=== PATIENT | male | born 1955 | race Caucasian/White ===

== ENCOUNTER 2019-04-11 11:22 | Emergency (ER) | payer BC, SELFPAY ==
[2019-04-11 11:30] VITALS: BP 149/79; PULSE 60; RESP 18; TEMP 36.6; O2SAT 99; BMI 26.4
--- NOTE | 2019-04-11 11:46 | ED_ITS ---
Entered by Oralia Griffin, acting as scribe for Agustina Barnhart MD, [facility] [place] HPI - SOB/Dyspnea General: Chief Complaint: Shortness of Breath/Dyspnea Stated Complaint: SOB/weak Time Seen by Provider: 04/11/19 11:44 Source: patient and family Mode of arrival: ambulatory Limitations: no limitations History of Present Illness: HPI Narrative: 63 yo Male presents to ED with complaint of shortness of breath. Pt states that he was diagnosed with bronchitis yesterday and was put on Levaquin. Pt states that he got to feeling weird and worse and decided to come in. Pt states that he thinks it started with the flu last week. Pt states that he was feeling weak and tingly in his arms and legs. MD elicited complaint: shortness of breath Onset (ago): day(s) Context: recent illness Timing: progressively worsening Exacerbating factors: lying flat Relieving factors: upright position Associated symptoms: Reports chest congestion, cough and other (weakness and tingling to extremities); Deny abdominal pain, chest pain, fever(s), nausea, palpitations, polydipsia, polyuria or vomiting Treatment prior to arrival: none Review of Systems General: Reports: 10 or more systems reviewed and unremarkable except in HPI and below Const: Reports: chills and body aches; Denies: fever Eyes: Denies: change in vision or blurry vision ENMT: Denies: throat pain, enlarged tonsils, painful swallowing, hoarseness, mouth pain or swelling of lips/tongue Card: Denies: chest pain, palpitations, irregular heart rhythm, edema or swelling of feet/ankles Resp: Reports: shortness of breath, non-productive cough and chest congestion GI: Denies: abdominal pain, nausea or vomiting : Denies: flank pain, painful urination, urinary frequency, urinary urgency or urinary hesitancy Musc: Reports: muscle weakness (tingling sensation); Denies: neck pain, back pain or extremity swelling Skin/Breast: Denies: rash, itching or redness Neuro: Denies: headache, numbness in extremities or weakness in extremities Endo: Denies: excessive urination, excessive thirst or tired all the time [facility] ED PFSH: Social History Smoking and tobacco status: never smoked Physical Exam Const: COMMON NORMALS: no apparent distress, average body habitus, oriented x3, no limitations, healthy appearing, alert and well nourished HENMT: COMMON NORMALS: normocephalic, head/scalp atraumatic and moist oral mucous membranes HEAD & SCALP: normocephalic and atraumatic Eye: COMMON NORMALS: PERRL, EOMs intact bilaterally, conjunctivae normal and no scleral icterus CONJUNCTIVA: Yes conjunctivae normal PUPIL: Yes PERRL Neck/C-Spine: COMMON NORMALS: full ROM, supple, no meningeal signs, no JVD and no carotid bruits Chest: COMMONS NORMALS: inspection of chest normal and palpation of chest normal Resp: COMMON NORMALS: normal respiratory effort, no retractions, no use of accessory muscles and percussion normal; negative for clear to auscultation bilaterally AUSCULTATION: not clear to auscultation bilaterally and diminished lung sounds on the left in the lower lung mendoza PERCUSSION: percussion normal Cardio: COMMON NORMALS: no JVD, regular rate, regular rhythm, S1 normal heart sound, S2 normal heart sound, no gallops, no clicks, no murmurs, no rub and peripheral pulses 2+ throughout RATE: regular rate RHYTHM: regular rhythm HEART SOUNDS: S1 normal and S2 normal PERIPHERAL PULSES: pulses 2+ throughout GI: COMMON NORMALS: normal to inspection, nondistended, normoactive bowel sounds, soft to palpation, non-tender, no hepatosplenomegaly, no masses and no bruits PALPATION: Yes soft and Yes no hepatosplenomegaly : COMMON NORMALS: Yes no CVA tenderness BLADDER/KIDNEY EXAM: Yes no CVA tenderness Back/Pelvis: COMMON NORMALS: no CVA tenderness Extremity: COMMON NORMALS: normal to inspection, full ROM, normal capillary refill, no calf tenderness and no pedal edema Neuro: COMMON NORMALS: oriented x3 SENSORIUM/ORIENTATION: Yes alert MENINGEAL SIGNS: Yes no meningeal signs Skin: COMMON NORMALS: no rashes or lesions noted, no wounds, skin turgor normal, no jaundice, no petechiae and no mottling GENERAL SKIN EXAM: no rashes or lesions noted and turgor normal Course Reevaluation(s): Reevaluation #1: Discussed his lab and imaging findings with him. Labs unremarkable, including a flat 2-hour troponin delta. Chest x-ray negative for acute findings. White cell count normal. Influenza negative. I will discharge him home with no new orders. Advised that this is possibly a side effect of his medication, levofloxacin. Since he does not appear to have any infectious illness I think it is okay to discontinue the medication. However he is advised to return for any concerns. He voiced understanding and is in agreement with the plan. Time: 14:49 Vital Signs: Vital signs: Vital Signs Temperature 97.8 F 04/11/19 11:30 Pulse Rate 69 04/11/19 15:02 Respiratory Rate 18 04/11/19 15:02 Blood Pressure 168/93 04/11/19 15:02 Pulse Oximetry 96 04/11/19 15:02 MDM - SOB/Dyspnea MDM Narrative: Medical decision making narrative: 63-year-old male who presented to the emergency department with generalized weakness and shortness of breath. He was started on Levaquin yesterday for suppose it bronchitis. Evaluation in the emergency department is unremarkable and he is discharged home with no new orders. Medical Records: Attestation: I reviewed the patient's medical records. Lab Data: Attestation: I reviewed the patient's lab results. Labs: Lab Results 04/11/19 04/11/19 04/11/19 Range/Units 12:24 12:24 12:24 WBC 4.6 (4.0-10.0) 10^3/ uL RBC 4.53 (4.1-5.3) 10^6/u L Hgb 11.7 (11.7-16.6) g/dL Hct 37.8 L (42.0-52.0) % MCV 83.4 (80-94) fL MCH 25.8 L (28.0-34.0) pg MCHC 31.0 (30.0-36.0) g/dL RDW 16.3 H (12.1-15.1) % Plt Count 520 H (130-400) 10^3/c mm MPV 11.6 H (7.4-10.4) fL Neut % (Auto) 80.4 % Lymph % (Auto) 11.0 % [place] % (Auto) 6.5 % Eos % (Auto) 1.7 % Baso % (Auto) 0.0 % Neut # (Auto) 3.7 (1.8-7.7) 10^3/u L Lymph # (Auto) 0.5 L (0.8-4.8) 10^3/u L [place] # (Auto) 0.3 (0.2-0.9) 10^3/u L Eos # (Auto) 0.1 (0.0-0.8) 10^3/u L Baso # (Auto) 0.0 (0.0-0.1) 10^3/u L Nucleated RBC % (a uto) 0 % Nucleated RBCs # 0.0 /100WBC Sodium 136 (136-145) mmol/L Potassium 4.1 (3.5-5.1) mmol/L Chloride 101 (98-107) mmol/L Carbon Dioxide 24 (22-29) mmol/L Anion Gap 15.1 (5-19) BUN 16 (8-23) mg/dL Creatinine 0.7 (0.7-1.2) mg/dL GFR Calculation 114.6 (90-130) mL/min Glucose 130 H (65-115) mg/dL Calcium 8.9 (8.5-10.5) mg/dL Total Bilirubin 0.3 (0.15-1.2) mg/dL AST 46 H (0-40) U/L ALT 34 (0-41) U/L Alkaline Phosphata se 92 (40-130) IU/L Troponin T Baselin e 17 H (0-15) ng/mL Troponin T 120 Min jay (0-15) ng/mL Delta Troponin T (0-10) ABS# C-Reactive Protein 32.5 H (0.0-4.9) mg/L NT-Pro-B Natriuret Pep 60 (0-125) pg/mL Total Protein 7.1 (6.6-8.7) g/dL Albumin 4.1 (3.5-5.2) g/dL Globulin 3.0 (1.3-4.6) g/dL Influenza Type A A g (Negative) POC Influenza B Ag (Negative) 04/11/19 04/11/19 Range/Units 12:32 14:05 WBC (4.0-10.0) 10^3/ uL RBC (4.1-5.3) 10^6/u L Hgb (11.7-16.6) g/dL Hct (42.0-52.0) % MCV (80-94) fL MCH (28.0-34.0) pg MCHC (30.0-36.0) g/dL RDW (12.1-15.1) % Plt Count (130-400) 10^3/c mm MPV (7.4-10.4) fL Neut % (Auto) % Lymph % (Auto) % [place] % (Auto) % Eos % (Auto) % Baso % (Auto) % Neut # (Auto) (1.8-7.7) 10^3/u L Lymph # (Auto) (0.8-4.8) 10^3/u L [place] # (Auto) (0.2-0.9) 10^3/u L Eos # (Auto) (0.0-0.8) 10^3/u L Baso # (Auto) (0.0-0.1) 10^3/u L Nucleated RBC % (a uto) % Nucleated RBCs # /100WBC Sodium (136-145) mmol/L Potassium (3.5-5.1) mmol/L Chloride (98-107) mmol/L Carbon Dioxide (22-29) mmol/L Anion Gap (5-19) BUN (8-23) mg/dL Creatinine (0.7-1.2) mg/dL GFR Calculation (90-130) mL/min Glucose (65-115) mg/dL Calcium (8.5-10.5) mg/dL Total Bilirubin (0.15-1.2) mg/dL AST (0-40) U/L ALT (0-41) U/L Alkaline Phosphata se (40-130) IU/L Troponin T Baselin e (0-15) ng/mL Troponin T 120 Min jay 15.91 H (0-15) ng/mL Delta Troponin T -1.09 L (0-10) ABS# C-Reactive Protein (0.0-4.9) mg/L NT-Pro-B Natriuret Pep (0-125) pg/mL Total Protein (6.6-8.7) g/dL Albumin (3.5-5.2) g/dL Globulin (1.3-4.6) g/dL Influenza Type A A g Negative (Negative) POC Influenza B Ag Negative (Negative) Imaging Data^: CXR: Radiologist's impression: [address] [address] XRay Report Signed Patient: Ric Alejo #: [id number] : 8Acct#:[id number] Age/Sex: 63 / MADM Date: 04/11/19 Loc: ERRoom/Bed: Attending Dr: Ordering Provider/Ordering MD: Agustina Barnhart MD, [facility] [place] Date of Service: 04/11/19 Procedure(s): XR chest 2V* 40871 Accession Number(s): [id number] Report Number: [id number] WS: [id number] Chest 2 views, 04/11/2019 Clinical Data: shortness of breath Comparison: PA and lateral chest, 12/29/2017. Findings: No nodules, masses or effusions are seen. The heart is normal. The pulmonary vascularity is not increased. No pneumonia or pneumothorax is seen. There is a small orthopedic anchor in the left humeral head. XR/XR chest 2V* [id number] Impression: Negative chest. Dictated By:Jennifer Roman MD Signed By:Jennifer Roman MDSigned Date/Time:04/11/191207 DD/ 1206 EKG Data^: EKG 1: Attestation: I personally reviewed and interpreted this EKG as follows: EKG Interpretation Date: 04/11/19 EKG interpretation time: 12:01 Prior EKG tracings: not available for review Interpretation: Sinus bradycardia. Heart rate 59 bpm. Normal axis, no ST changes. EKG 2: Attestation: I personally reviewed and interpreted this EKG as follows: EKG Interpretation Date: 04/11/19 EKG interpretation time: 13:38 Prior EKG tracings: available for review Interpretation: no changes from earlier EKG Discharge Plan Discharge Patient Disposition: Home, Self-Care Clinical Impression: Generalized weakness, Shortness of breath Condition: Stable Prescriptions: Discontinued levofloxacin [Levaquin] 750 mg Tablet 750 mg PO DAILY RF: 0 No Action Mucinex 600 mg Tablet Extended Release 12hr 600 mg PO BID RF: 0 Discharge Orders: Discharge Order (Routine); Ordered 04/11/19 Ordered By: Agustina Barnhart Referrals: Ovi Prescott MD [Family Provider] - 1-3 days Patient Instructions: Dyspnea (ED), Weakness (Generalized) Activity Restrictions/Additional Instructions: Return for any new or worsening symptoms. Follow-up with your primary care provider within 3 days. Drink plenty of fluids to keep well-hydrated. Discharge Date/Time: 04/11/19 15:06 Coding Level of Care Code ED Trade Union Secretary for Chg Fwd Exam Comprehensive The documentation recorded by the Elias oconnor Carmen, accurately reflects the service I personally performed and the decisions made by Obey vivar Adegoke I, MD, [facility] [place] Apr 11, 2019 11:22
--- NOTE | 2019-04-11 11:48 | PC.NURSE ---
Patient reports he was seen at his PCP yesterday for a cough and congestion and they diagnosed him with bronchitis and possible pneumonia. Patient states that this morning he woke up feeling much worse. Patient reports his PCP told him to be checked out if the symptoms got worse.
--- NOTE | 2019-04-11 11:52 | ECG_ITS ---
Measurements Intervals [place] Rate: 59 P: 2 ND: 139 QRS: -11 QRSD: 101 T: 61 QT: 417 QTc: 415 SINUS BRADYCARDIA NONSPECIFIC T-WAVE ABNORMALITY Compared to ECG 12/29/2017 11:04:41 T-wave abnormality now present Electronically Signed On 04-11-2019 19:45:14 EXERCISE TEACHER by Ranjith Herman M.D. [email or web address]
--- NOTE | 2019-04-11 11:52 | XR_ITS ---
WS: [id number] Chest 2 views, 04/11/2019 Clinical Data: shortness of breath Comparison: PA and lateral chest, 12/29/2017. Findings: No nodules, masses or effusions are seen. The heart is normal. The pulmonary vascularity is not increased. No pneumonia or pneumothorax is seen. There is a small orthopedic anchor in the left humeral head. XR/XR chest 2V* [id number] Impression: Negative chest.
[2019-04-11 12:51] LABS: Eosinophils # 0.1 10^3/uL (0.0-0.8); Eosinophils % 1.7 %; Hematocrit 37.8 % (42.0-52.0); Hemoglobin 11.7 g/dL (11.7-16.6); Lymphocytes # 0.5 10^3/uL (0.8-4.8); Mean Corpuscular Hemoglobin 25.8 pg (28.0-34.0); Mean Corpuscular Volume 83.4 fL (80-94); Mean Platelet Volume 11.6 fL (7.4-10.4); Monocytes # 0.3 10^3/uL (0.2-0.9); Monocytes % 6.5 %; Neutrophils # 3.7 10^3/uL (1.8-7.7); Neutrophils % 80.4 %; Nucleated Red Blood Cells % 0 %; Platelet Count 520 10^3/cmm (130-400); Red Blood Count 4.53 10^6/uL (4.1-5.3); Red Cell Distribution Width 16.3 % (12.1-15.1); White Blood Count 4.6 10^3/uL (4.0-10.0)
[2019-04-11 13:10] LABS: Troponin(5th) Baseline 17 ng/mL (0-15)
[2019-04-11] MEDS: ondansetron 4 MG Tablet PO (13:18)
[2019-04-11 13:19] LABS: Alanine Aminotransferase 34 U/L (0-41); Albumin Level 4.1 g/dL (3.5-5.2); Alkaline Phosphatase 92 IU/L (40-130); Anion Gap 15.1 (5-19); Aspartate Amino Transferase 46 U/L (0-40); Blood Urea Nitrogen 16 mg/dL (8-23); C Reactive Protein 32.5 mg/L (0.0-4.9); Calcium 8.9 mg/dL (8.5-10.5); Carbon Dioxide 24 mmol/L (22-29); Chloride 101 mmol/L (98-107); Glomerular Filtration Rate 114.6 mL/min (90-130); Glucose 130 mg/dL (65-115); NT Pro B Type Natriuretic Pept 60 pg/mL (0-125); Potassium 4.1 mmol/L (3.5-5.1); Sodium 136 mmol/L (136-145); Total Bilirubin 0.3 mg/dL (0.15-1.2); Total Protein 7.1 g/dL (6.6-8.7)
--- NOTE | 2019-04-11 13:52 | ECG_ITS ---
Measurements Intervals [place] Rate: 57 P: 30 MI: 171 QRS: -20 QRSD: 105 T: 9 QT: 437 QTc: 427 SINUS BRADYCARDIA POSSIBLE LATERAL MYOCARDIAL INFARCTION , PROBABLY OLD [30 ms Q WAVE IN I/ I/aVL/V5/V6] Compared to ECG 12/29/2017 11:04:41 Myocardial infarct finding now present Electronically Signed On 04-11-2019 20:00:22 RETIREMENT ADMINISTRATOR by Ranjith Herman M.D. [email or web address]
[2019-04-11 14:04] VITALS: BP 131/89; PULSE 67; RESP 15; O2SAT 94
[2019-04-11 14:32] LABS: Troponin 5 2HR 15.91 ng/mL (0-15)
[2019-04-11 14:37] LABS: Troponin 5 2HR Delta -1.09 ABS# (0-10)
--- NOTE | 2019-04-11 14:37 | PC.NURSE ---
PATIENT C/O PAIN, ORDERS RECEIVED
[2019-04-11 14:39] LABS: Influenza A by IFA Negative (Negative); Influenza B by IFA Negative (Negative)
[2019-04-11 15:02] VITALS: BP 168/93; PULSE 69; RESP 18; O2SAT 96
== END 2019-04-11 15:06 | disposition home or self-care (01) ==
PROVIDERS: Emergency Provider Family Medicine; Family Provider Family Medicine
DX: R53.1 Weakness (principal); R06.02 Shortness of breath; R06.00 Dyspnea, unspecified; R00.1 Bradycardia, unspecified
CPT/HCPCS: 36415; 71046; 80053; 83880; 84484; 85025; 86140; 87804; 93005; 96374; 99283; 99284; Q0162

== ENCOUNTER → 2019-08-24 09:56 | Outpatient (BNVA) | payer BC, SELFPAY | PROVIDERS: Family Provider Family Medicine; Visit Provider Dermatology | DX: D18.01 Hemangioma of skin and subcutaneous tissue (principal); L82.1 Other seborrheic keratosis; L73.8 Other specified follicular disorders; Z12.83 Encounter for screening for malignant neoplasm of skin; Z85.828 Personal history of other malignant neoplasm of skin; L57.0 Actinic keratosis | CPT/HCPCS: 11102; 11305; 17000; 17003; 88305; 99203 ==

== ENCOUNTER → 2019-09-12 14:00 | Outpatient (BNVA) | payer BC, SELFPAY | PROVIDERS: Family Provider Family Medicine; Visit Provider Nurse Practitioner Family | DX: R53.83 Other fatigue (principal); R50.9 Fever, unspecified; J02.9 Acute pharyngitis, unspecified | CPT/HCPCS: 87635 ==

== ENCOUNTER → 2019-09-14 13:45 | Outpatient (BNVA) | payer BC, SELFPAY | PROVIDERS: Family Provider Family Medicine; Visit Provider Nurse Practitioner Family | DX: J02.9 Acute pharyngitis, unspecified (principal); R50.9 Fever, unspecified; R53.83 Other fatigue | CPT/HCPCS: 87635 ==

== ENCOUNTER → 2019-09-26 13:20 | Outpatient (BNVA) | payer BC, SELFPAY | PROVIDERS: Family Provider Family Medicine; Visit Provider Dermatology | DX: L82.0 Inflamed seborrheic keratosis (principal); C44.92 Squamous cell carcinoma of skin, unspecified | CPT/HCPCS: 11603; 12032; 17000; 88304; 88305 ==

== ENCOUNTER → 2019-10-10 12:56 | Outpatient (BNVA) | payer BC, SELFPAY | PROVIDERS: Family Provider Family Medicine; Visit Provider Dermatology | DX: Z48.02 Encounter for removal of sutures (principal) | CPT/HCPCS: 99212 ==

== ENCOUNTER → 2019-12-26 13:38 | Outpatient (BNVA) | payer BC, SELFPAY | PROVIDERS: Family Provider Family Medicine; Visit Provider Dermatology | DX: D48.9 Neoplasm of uncertain behavior, unspecified (principal) | CPT/HCPCS: 88304 ==

== ENCOUNTER → 2021-02-21 08:36 | Outpatient (BNVA) | payer BC, SELFPAY | PROVIDERS: Family Provider Family Medicine; Visit Provider Surgery | DX: Z20.822 Contact with and (suspected) exposure to COVID-19 (principal); Z11.52 Encounter for screening for COVID-19 | CPT/HCPCS: 87635 ==

== ENCOUNTER 2021-02-26 09:43 | Day surgery (SDC) | payer BC, SELFPAY ==
[2021-02-25 13:32] VITALS: BMI 26.4
[2021-02-26] VITALS (10 sets, daily range): BP systolic 112–144; BP diastolic 64–98; PULSE 59–83; RESP 6–20; TEMP 36.3–37.1; O2SAT 92–97
--- NOTE | 2021-02-26 10:12 | P.ANESASSM_ITS ---
Pre-Anesthetic Assessment Pre-Anesthetic Assessment: Height/Weight: Height 1.85 m Weight 90.718 kg Preop Diagnosis: Left inguinal hernia Proposed Procedure: Operation Date: 02/26/21 11:10 Proposed Procedures p Laparoscopic Inguinal Hernia Repair 53309 K40.90(Left) - Kevin Pandya MD Familial anesthetic complications: None Was Beta Varinder taken within 24 hours: N/A Was Clonidine taken within 24 hours: N/A Last intake: > 8 hrs Social: Social History: No alcohol and No tobacco Exam: Pre-Anes Outpt Exam: alert, oriented x 3, clear to auscultation bilaterally and regular rate & rhythm Airway: Cervical ROM: WNL MP: 2 Dentition: Full Neuropsych: Comments: 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) Anesthetic Plan: ASA status: 2 Anesthesia: General Risk of > 500 ml blood loss (7ml/kg in children): No PFSH Anesthesia PFSH: Medical History (Updated 02/18/21 @ 14:05 by Kevin Pandya MD) Charcot Eugenia Tooth muscular atrophy History of nonmelanoma skin cancer Surgical History (Updated 02/18/21 @ 14:05 by Kevin Pandya MD) History of colonoscopy 2019 History of foot surgery History of shoulder surgery 2015 History of total knee replacement left 2017 Family History Other CAD (coronary artery disease) Denies family history of Diabetes Cancer Hypertension Stroke Social History Smoking and tobacco status: never smoked Alcohol intake: current Alcohol intake frequency: 0-2 Drinks per Day History of recent travel: Yes ([facility]) Data Anesthesia Cardiac Studies: No Data to Display
--- NOTE | 2021-02-26 10:29 | W.PM.OPSFHP ---
Same Day Surgery H&P Indication for Procedure/HPI DATE OF PROCEDURE: February 26, 2021 CHIEF COMPLAINT/INDICATIONFOR SURGICAL PROCEDURE: left inguinal hernia PREOP DIAGNOSIS: Left inguinal hernia PLANNED PROCEDRUE: Operation Date: 02/26/21 11:10 Proposed Procedures p Laparoscopic Inguinal Hernia Repair 11716 K40.90(Left) - Kevin Pandya MD Medications/Allergies* Home Medications Medication Instructions Recorded Confirmed Type aspirin 81 mg tablet,delayed 81 mg PO DAILY 08/24/19 02/25/21 History release loratadine 10 mg tablet 10 mg PO DAILY 08/24/19 02/26/21 History multivitamin 1 cap PO DAILY 08/24/19 02/26/21 History fluticasone propionate 50 1 spray INTRANASAL DAILY 06/04/20 02/26/21 History mcg/actuation nasal spray,suspension tamsulosin 0.4 mg capsule 0.4 mg PO DAILY 02/18/21 02/26/21 History ibuprofen 200 mg PO Q6H PRN 02/25/21 02/26/21 History Allergies/Adverse Reactions Allergy/AdvReac Type Severity Reaction Status Date / Time Penicillins Allergy ALGY-Anaphy Verified 02/18/21 13:56 laxis Pertinent History/Comorbid Conditions* Medical History (Updated 02/18/21 @ 14:05 by Kevin Pandya MD) Charcot Eugenia Tooth muscular atrophy History of nonmelanoma skin cancer Surgical History (Updated 02/18/21 @ 14:05 by Kevin Pandya MD) History of colonoscopy 2019 History of foot surgery History of shoulder surgery 2015 History of total knee replacement left 2017 Family History (Updated 08/24/19 @ 10:09 by Michelle Pretty LPN) CAD (coronary artery disease) Denies family history of Diabetes Cancer Hypertension Stroke Social History Smoking and tobacco status: never smoked Alcohol intake: current Alcohol intake frequency: 0-2 Drinks per Day History of recent travel: Yes ([facility]) Pertinent Exam Findings alert, oriented x 3 and regular rate & rhythm Recommendations Surgery/Procedure today Coding Level of Care Code Acute Mixer Operator Hot Metal for Madeline Garduno
[2021-02-26] MEDS: sodium chloride 0.9% 1,000 ML 30 ML IV (10:30)
[2021-02-26] MEDS: vancomycin 1,000 MG in sodium chloride 0.9% 250 ML 250 MG IV (13:40)
[2021-02-26] MEDS: fentaNYL 50 mcg/mL INJ 2mL IVP (15:16)
[2021-02-26] MEDS: HYDROcodone-acetaminophen 5-325 mg Tablet 1 TAB PO (16:00)
--- NOTE | 2021-02-26 16:30 | PM.OP ---
Operative Report Date of procedure: February 26, 2021 Pre-op Diagnosis: Left inguinal hernia
--- NOTE | 2021-02-27 00:29 | ANES.PREANE2 ---
Pre-Anesthetic Assessment Pre-Anesthetic Assessment: Height/Weight: Height 1.85 m Weight 90.718 kg Temp Pulse Resp BP Pulse Ox 98.1 F 70 16 137/88 97 02/26/21 16:29 02/26/21 16:29 02/26/21 16:29 02/26/21 16:29 02/26/21 16:29 Preop Diagnosis: Left inguinal hernia Proposed Procedure: Operation Date: 02/26/21 11:10 Proposed Procedures p Laparoscopic Inguinal Hernia Repair 11508 K40.90(Left) - Kevin Pandya MD Familial anesthetic complications: MARIELENA Was Beta Varinder taken within 24 hours: N/A Was Clonidine taken within 24 hours: N/A Last intake: Intake Last Liquid Date 02/25/21 Last Liquid Time 19:00 Last Solid Date 02/25/21 Last Solid Time 19:00 Social: Social History: No alcohol and No tobacco Exam: Pre-Anes Outpt Exam: alert, oriented x 3, clear to auscultation bilaterally and regular rate & rhythm Airway: Submandibular: WNL Cervical ROM: WNL PFSH Anesthesia PFSH: Medical History (Updated 02/18/21 @ 14:05 by Kevin Pandya MD) Charcot Eugenia Tooth muscular atrophy History of nonmelanoma skin cancer Surgical History (Updated 02/26/21 @ 13:49 by Kevin Pandya MD) History of colonoscopy 2019 History of foot surgery History of shoulder surgery 2015 History of total knee replacement left 2017 Status post left inguinal hernia repair (02/26/21) Family History Other CAD (coronary artery disease) Denies family history of Diabetes Cancer Hypertension Stroke Social History Smoking and tobacco status: never smoked Alcohol intake: current Alcohol intake frequency: 0-2 Drinks per Day History of recent travel: Yes ([facility]) Data Anesthesia Cardiac Studies: No Data to Display
--- NOTE | 2021-02-27 09:16 | PM.OP ---
Operative Report Date of procedure: February 26, 2021 Pre-op Diagnosis: Symptomatic left inguinal hernia Post-op Diagnosis: Indirect left inguinal hernia Procedure Done: Laparoscopic total extraperitoneal repair of indirect left inguinal hernia with 15 x 10 cm Surgimax 3D mesh Pathology: none sent Surgeon: Kevin Pandya Anesthesia: General Condition: stable Disposition: PACU Procedure: The patient was taken to the operating room. After IV antibiotic was administered, the abdomen was prepped and draped in a sterile manner. Using a 15 blade, a 1.0 cm transverse incision was made infraumbilically on the left side. Subcutaneous tissue was divided using electrocautery and the anterior rectus sheath divided using an 11 blade. The rectus muscle was retracted laterally and the extraperitoneal space identified. A 11 mm port was placed and 12 mm of pneumoperitoneum was created. A 10 mm 30? scope was introduced and the retrorectus space was opened using the camera up to the pubic symphysis and 5 mm ports were placed in the midline, one 2-fingerbreadths above the pubic symphysis and the other midway between these two ports under direct visualization. Blunt dissection was carried out to open up the tissue in the midline and to the pubic symphysis, which was identified. The dissection was then carried laterally where the iliopubic tract was identified. There was no femoral, obturator or direct hernia noted. The inferior epigastric artery was identified and dissection was carried posterior to it and laterally, the space was opened up to the level of the umbilicus superior to the anterior superior iliac spine. I then proceeded to dissect out the spermatic cord and the indirect hernial sac was reduced . 15 x 10cm Surgimax 3D mesh was rolled and introduced through the 10 mm port and rolled laterally and apposed well against the abdominal wall to cover the myopectineal orifice completely. 10 Cc of 0.5% Marcaine was infiltrated into the preperitoneal space. The extraperitoneal space was desufflated under direct visualization to ensure no slippage of hernial sac under the mesh. All ports were removed, the anterior rectus fascia at the infraumbilical port closed using figure of eight 0 Vicryl sutures, subcutaneous tissue approximated using 3-0 Vicryl sutures and skin at all three port sites were closed using running subcuticular 4-0 Monocryl sutures and Dermabond. 10 mL of 0.5% Marcaine was infiltrated at the port sites. The patient was stable throughout the procedure.
== END 2021-02-26 16:40 | disposition home or self-care (01) ==
PROVIDERS: PCP Family Medicine; Visit Provider Surgery
PROC: (CPT 49650; principal; 2021-02-26 11:10)
DX: K40.90 Unilateral inguinal hernia, without obstruction or gangrene, not specified as recurrent (principal); Z82.49 Family history of ischemic heart disease and other diseases of the circulatory system; Z79.82 Long term (current) use of aspirin
CPT/HCPCS: 49650; C1781; J1100; J2405; J2704; J2710; J3010; J3370; J3490; J7030; J7050

== ENCOUNTER 2021-03-13 08:41 | Outpatient (CLI) | payer BC, SELFPAY ==
--- NOTE | 2021-03-13 08:53 | XRR_ITS ---
PROCEDURE INFORMATION: Exam: XR Bilateral Hips Exam date and time: 03/13/2021 8:53 AM Age: 65 years old Clinical indication: Hip pain; Bilateral; Additional info: Bilateral hip pain TECHNIQUE: Imaging protocol: XR bilateral hips. Views: 2 views of hips with pelvis when performed. COMPARISON: No relevant prior studies available. FINDINGS: Bones/joints: Mild degenerative changes are present in the hips with small osteophytes on the femoral heads. The joint spaces are not significantly narrowed. Degenerative changes are present in the lower lumbar spine with disc space narrowing sclerosis and osteophytes. No fracture or other acute abnormality. Soft tissues: Unremarkable. XR/XR hip BI 3-4V wo/w pel [id number] IMPRESSION: 1. 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 2. No acute abnormality.
== END 2021-03-13 08:42 | disposition home or self-care (01) ==
PROVIDERS: PCP Family Medicine; Visit Provider Family Medicine
DX: M16.0 Bilateral primary osteoarthritis of hip (principal); M47.816 Spondylosis without myelopathy or radiculopathy, lumbar region
CPT/HCPCS: 73522

== ENCOUNTER 2021-04-08 14:34 | Outpatient (CLI) | payer BC, SELFPAY ==
[2021-04-08 16:16] LABS: Basophils % 0.2 %; Eosinophils # 0.2 10^3/uL (0.0-0.8); Eosinophils % 1.7 %; Hemoglobin 11.8 g/dL (11.7-16.6); Lymphocytes # 1.4 10^3/uL (0.8-4.8); Lymphocytes % 13.7 %; Mean Corpuscular HGB Conc 30.3 g/dL (30.0-36.0); Mean Corpuscular Hemoglobin 24.7 pg (28.0-34.0); Mean Corpuscular Volume 81.6 fl (80-94); Monocytes # 0.7 10^3/uL (0.2-0.9); Monocytes % 6.6 %; Neutrophils # 7.73 10^3/uL (1.8-7.7); Neutrophils % 77.2 %; Nucleated Red Blood Cells % 0 %; Platelet Count 857 10^3/cmm (130-400); Red Blood Count 4.78 10^6/uL (4.1-5.3); Red Cell Distribution Width 17.1 % (12.1-15.1)
[2021-04-08 16:24] LABS: LAB Peripheral Smear Sent for Review
[2021-04-08 16:43] LABS: Slide Review Slide Review Perform
[2021-04-08 16:58] LABS: Alanine Aminotransferase 16 U/L (0-41); Albumin Level 4.2 g/dL (3.5-5.2); Alkaline Phosphatase 97 IU/L (40-130); Anion Gap 17.2 (5-19); Aspartate Amino Transferase 17 U/L (0-40); Blood Urea Nitrogen 19 mg/dL (8-23); Calcium 9.5 mg/dL (8.5-10.5); Carbon Dioxide 25 mmol/L (22-29); Chloride 105 mmol/L (98-107); Ferritin 19 ng/mL (30-400); Globulin 2.8 g/dL (1.3-4.6); Glomerular Filtration Rate 85.2 mL/min (90-130); Glucose 103 mg/dL (65-115); Iron 26 ug/dL (59-158); Lactate Dehydrogenase 256 U/L (135-225); Osmolality Calculated 299 mOsm/kg (285-295); Potassium 4.2 mmol/L (3.5-5.1); Sodium 143 mmol/L (136-145); Total Bilirubin 0.2 mg/dL (0.15-1.2); Total Iron Binding Capacity 368 mcg/dl; Unsaturated Iron Binding 342 ug/dL (112-347)
--- NOTE | 2021-04-08 18:14 | ONC CON_ITS ---
Dr. Damico New Patient Note Patient: Ric Alejo Unit #: [id number]: 1955 Dicatated By: Art Damico M.D.Date of Visit: Apr 08, 2021 Onc MED New Patient/Consult Referring Physician: Dr. Ovi Prescott M.D. Chief Complaint: Anemia and thrombocytosis. History of Present Illness: This is a 65-year-old man with mild anemia and a moderately elevated platelet count. He has a history of Fgauksa-Lzhqa-Xiyfm disease and he has some degenerative arthritis. Overall, though, he has been in good general health. He had recently been to see Dr. Prescott when he developed significant pain and stiffness in both hips following a COVID-19 booster. The joint pain responded immediately to a 5-day steroid therapy, but recurred soon after. He then took prednisone for 10 days, and the pain again responded very well, though it is starting to come back again. In the meantime, his laboratory studies on 03/13/2021 showed a mild anemia with hemoglobin 11.0 g and hematocrit 35.9%. The red cell indices were mildly hypochromic/microcytic. The white blood cell count was 10,300 and the platelet count was moderately elevated at 811,000. His sed rate was mildly elevated at 31 mm/h. Comprehensive metabolic profile was unremarkable. His repeat CBC on 03/27/2021 showed similar findings with hemoglobin 11.7 g, white blood cell count 10,900, and platelet count 731,000. On reviewing his records in [facility], a prior CBC from March 2019 also showed mild anemia with hemoglobin 11.7 g. White blood cell count at that time was normal at 4600 and the platelet count was just mildly elevated at 520,000. Multiple earlier blood counts dating back to February 2015 showed variable hemoglobin/hematocrit levels, but the majority showed mildly elevated platelet counts. It is noteworthy that he has been a regular blood donor every 8 weeks and recalls only one occasion when he flunked the screening hematocrit. He has been feeling pretty good generally. He has been fatigued at times but recently has energy has been pretty much back to normal and he has had normal activity. ECOG score is 0. He has good appetite. He has no fever or night sweats. He has chronic allergy related sinus symptoms. He has not had sore mouth or throat, and he does not complain of cough. He has some mild exertional dyspnea, attributable to being out of shape. He has not had chest pain. He has no GI complaints. He had a negative colonoscopy in 2019. Bladder function has been okay taking tamsulosin. He is still having a little pain and stiffness in his hips and in his fingers. He has neuropathy associated with the Msvadmp-Surac-Qncgo disease, and he says he does not have a lot of feeling in his feet. Past Medical History: His medical history includes allergic rhinitis, benign prostatic hypertrophy, Ijcvvvd-Hexcv-Pelcn disease, and degenerative arthritis. Past Surgical History: His surgical/procedural history includes skin cancer excision x 2, tonsillectomy, left inguinal hernia repair in 2021, right fifth metatarsal head resection in 2019, colonoscopy in 2019, left total knee arthroplasty in 2018, arthroscopic left knee surgery in 2018, and left shoulder rotator cuff repair with biceps tendon repair in 2015. Medications: Advil PM Tablet Oral PRN, Aspirin 1 Tablet (of 81 mg) Tablet, enteric coated Oral daily, Flonase (50 mcg/act) Suspension Nasal daily, Ibuprofen Tablet Oral PRN, Multivitamin Adult 0.5 Tablet Oral daily, Xanax Tablet Oral PRN Allergies: Penicillins Social History: Mr. Alejo is . He is employed as a student financial aid manager. He occasionally smokes a cigar. He has never smoked cigarettes. He drinks 1 beer daily. Family History: His father with lung disease at age 89. He also had coronary artery disease. His mother had Luyloyf-Lgruy-Ufaby disease. She at age 94. His only brother, currently age 65, has Ieljsss-Buxyv-Iaswp disease, and he also has essential thrombocythemia. Review Of Symptoms: Constitutional - He has been fatigued that times but recently his energy has been back to normal, and he has normal activity. He has good appetite. His weight has been stable. No fever or night sweats. ECOG score is 0, Eyes - No change in vision, ENMT - No hearing loss. He has tinnitus. He has chronic allergy related sinus symptoms. No mouth sores. No sore throat or difficulty swallowing, Hematologic/Lymphatic - No abnormal bruising or bleeding, Respiratory - He has mild exertional dyspnea. No cough. No pleuritic pain or hemoptysis, Cardiovascular - No angina pain. No palpitations, Gastrointestinal - No nausea or vomiting. No heartburn or acid reflux. No diarrhea or constipation. No blood in the stool or black stools, Genitourinary (M) - He has good bladder function taking tamsulosin. No dysuria or hematuria. No urinary frequency. No urgency or incontinence, Musculoskeletal - He has had pain and stiffness in the hip joints and to lesser extent in his fingers. It has been responsive to prednisone, Integumentary - He has had 2 skin cancers excised and he also has had treatment for actinic keratoses, Neurologic - No headache or dizziness. His does not have a lot of feeling in his feet. No other focal neurologic symptoms, Psychiatric - He has very occasional anxiety. No depression. No insomnia. Vital Signs: Performed on Apr 08, 2021 15:49: 4, 0, 0.00, 0.00 sq.m, 73 in, 96 %, 95 /min, 16 /min, 147/86 mm(hg) (HIGH), and 98.2 F (LOW). Physical Examination: Constitutional - He appears to be in good general health, Eyes - Sclerae nonicteric. Conjunctivae clear, ENMT - No lesions noted in the oral cavity, Neck - No mass or thyromegaly, Hematologic/Lymphatic - No cervical, clavicular, or axillary adenopathy, Respiratory - Lungs are clear with good air movement bilaterally, Cardiovascular - Heart rhythm is regular. There is no murmur, gallop, or rub noted, Abdomen - Soft and non-tender. Liver and spleen are not enlarged. There is no abdominal mass or ascites noted and there is no inguinal adenopathy, Back/Spine - No spine or CVA tenderness noted, Extremities - No edema. Dorsalis pedis pulses are palpable bilaterally, Integumentary - No rashes. No suspicious skin lesions noted, Neurologic - No focal neurologic deficits noted. Problem List: 1. Mild anemia. This is almost certainly due to iron deficiency in association with regular blood donation. 2. He has a moderately elevated platelet count and borderline high white blood cell count. This may be reactive in association with the iron deficiency. A myeloproliferative neoplasm is also possible. 3. He has had some ongoing joint pain following a COVID-19 booster. 4. Ykhjhvb-Hzlmx-Blpoe disease. 5. Allergic rhinitis. 6. Benign prostatic hypertrophy. 7. He has occasional, situational anxiety. Problems Addressed with this Encounter and Plan: This is a patient with a mild anemia, almost certainly due to iron deficiency associated with regular blood donations. He has a moderately elevated platelet count, which may very well be reactive. A myeloproliferative neoplasm is also a possibility, and that could either be essential thrombocythemia or polycythemia rubra vera. It is interesting to note that his brother, who also has Zrztagi-Gozip-Emelp disease, is under treatment for essential thrombocythemia. The laboratory findings were reviewed with the patient, and we discussed the clinical implications. He will have additional laboratory studies today to include CBC, comprehensive metabolic profile, LDH level, serum iron studies, and ferritin. I will review the blood smear, and I will request a molecular panel for myeloproliferative neoplasms. He will have further evaluation as indicated. Signed By: Art Damico M.D. <<Signature on File>>
[2021-04-15 23:28] LABS: CALR Exon 9 Mutation NOT DETECTED (NOT DETECTED); JAK2 Exon 12 Mutation NOT DETECTED (NOT DETECTED); JAK2 V617 Block Specimen ID NG; JAK2 V617 Clinical Indication NG; JAK2 V617 Mutation NOT DETECTED (NOT DETECTED); JAK2 V617 Specimen Source NG; MPL Exon 12 Mutation DETECTED (NOT DETECTED)
== END 2021-04-08 14:35 | disposition home or self-care (01) ==
LOC: ONCMED 14:41
PROVIDERS: PCP Family Medicine; Visit Provider Internal Medicine Medical Oncology
DX: D50.9 Iron deficiency anemia, unspecified (principal); D72.829 Elevated white blood cell count, unspecified; D69.3 Immune thrombocytopenic purpura; G60.0 Hereditary motor and sensory neuropathy; J30.9 Allergic rhinitis, unspecified; N40.0 Benign prostatic hyperplasia without lower urinary tract symptoms; F41.9 Anxiety disorder, unspecified; Z79.82 Long term (current) use of aspirin; Z79.899 Other long term (current) drug therapy
CPT/HCPCS: 36415; 80053; 81270; 82728; 83540; 83550; 83615; 85025; 99205

== ENCOUNTER 2021-04-24 08:55 | Outpatient (CLI) | payer BC, SELFPAY ==
--- NOTE | 2021-04-27 12:16 | ONC FU_ITS ---
Dr. Damico Patient Follow-Up Note Patient: Ric Alejo Unit #: [id number]: 1955 Dicatated By: Art Damico M.D.Date of Visit:Apr 24, 2021 Onc Med Follow-up/Prog Note Chief Complaint: Anemia and thrombocytosis. History of Present Illness: This is a 65-year-old man with mild anemia and a moderately elevated platelet count. He has a history of Ggpdduj-Lthvq-Ekoxd disease and he has some degenerative arthritis. Overall, though, he has been in good general health. He had recently been to see Dr. Prescott when he developed significant pain and stiffness in both hips following a COVID-19 booster. The joint pain responded immediately to a 5-day steroid therapy, but recurred soon after. He then took prednisone for 10 days, and the pain again responded very well, though it is starting to come back again. In the meantime, his laboratory studies on 03/13/2021 showed a mild anemia with hemoglobin 11.0 g and hematocrit 35.9%. The red cell indices were mildly hypochromic/microcytic. The white blood cell count was 10,300 and the platelet count was moderately elevated at 811,000. His sed rate was mildly elevated at 31 mm/h. Comprehensive metabolic profile was unremarkable. His repeat CBC on 03/27/2021 showed similar findings with hemoglobin 11.7 g, white blood cell count 10,900, and platelet count 731,000. I had seen him initially on 04/08/2021. On reviewing his records in [facility], a prior CBC from March 2019 also showed mild anemia with hemoglobin 11.7 g. White blood cell count at that time was normal at 4600 and the platelet count was just mildly elevated at 520,000. Multiple earlier blood counts dating back to February 2015 showed variable hemoglobin/hematocrit levels, but the majority showed mildly elevated platelet counts. His history is also significant in that he had been a regular blood donor every 8 weeks and had recalled only one occasion when he flunked the screening hematocrit. His CBC at that time showed mild anemia with hemoglobin 11.8 g and hematocrit 39.0%. The red cell indices were borderline low. The white blood cell count was 10,000 and the platelet count was 857,000. The LDH was slightly elevated at 256 U/L. The blood smear did show numerous large platelet forms. His serum iron studies showed low transferrin saturation at 7.0% and the ferritin was low at 19 ng/mL consistent with iron deficiency, as I had expected. 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 The JAK2 V617F mutation was not detected. He returns today to discuss the lab results and to discuss further management. Medications: Advil PM Tablet Oral PRN, Aspirin 1 Tablet (of 81 mg) Tablet, enteric coated Oral daily, Flomax 1 Tablet (of 0.4 mg) Capsule Oral daily, Flonase (50 mcg/act) Suspension Nasal daily, Ibuprofen Tablet Oral PRN, Iron (Ferrous Sulfate) 1 Tablet (of 325 (65 fe) mg) Oral daily, Multivitamin Adult 0.5 Tablet Oral daily, Xanax Tablet Oral PRN Allergies: Penicillins Vital Signs: Performed on Apr 24, 2021 09:14 Height - 73.00 in Weight - 205.2 lbs (HIGH) BSA - 2.18 sq.m BMI - 27.07 Temperature - 98.0 F (LOW) Pulse - 74 /min Respiration - 16 /min BP - 147/81 mm(hg) (HIGH) O2 Sat - 96 % Pain - 6 Fatigue - 5 Lab/Imaging: Test performed on Apr 08, 2021 15:55 Ferritin 19 ng/mL Iron 26 mcg/dL LDH (Total) 256 U/L Sodium 143 mmol/L Iron Binding Capacity (TIBC) 368 mcg/dl Potassium 4.2 mmol/L % Iron Saturation 7.0 % Chloride 105 mmol/L CO2 25 mmol/L UIBC 342 mcg/dL Anion Gap 17.2 BUN 19 mg/dL Creatinine 0.9 mg/dL eGFR 85.2 mL/min Glucose 103 mg/dL Osmolality - Calculated 299 mOsm/kg Calcium 9.5 mg/dL Protein, Total 7.0 g/dL Albumin 4.2 g/dL Globulin 2.8 g/dL Bilirubin, Total 0.2 mg/dL ALT (SGPT) 16 U/L AST (SGOT) 17 U/L Alkaline Phosphatase 97 IU/L WBC 10.0 10 3/uL RBC 4.78 10 6/uL HGB 11.8 g/dL HCT 39.0 % MCV 81.6 fl MCH 24.7 pg MCHC 30.3 g/dL RDW 17.1 % Platelet Count 857 10 3/cmm MPV 12.0 fL Neutrophils 7.73 10 3/uL Lymphocytes 1.4 10 3/uL Monocytes 0.7 10 3/uL Eosinophils 0.2 10 3/uL Basophils 0.0 10 3/uL Neutrophil % 77.2 % Lymphocyte % 13.7 % Monocyte % 6.6 % Eosinophil % 1.7 % Basophils % 0.2 % NRBC % 0 % CBC Slide Review Slide Review Perform SLIDE REVIEW AGREES WITH AUTOMATED RESULTS ST Problem List: 1. Essential thrombocythemia. 2. Iron deficiency in association with regular blood donation. 3. He has had some ongoing joint pain following a COVID-19 booster. 4. Nqkiglq-Yehwb-Mnvpa disease. 5. Allergic rhinitis. 6. Benign prostatic hypertrophy. 7. He has occasional, situational anxiety. Problems Addressed with this Encounter and Plan: 1. 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 The laboratory findings were reviewed with the patient and his , and we discussed the clinical implications. 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 Overall, he should have a favorable prognosis. However, based on his age greater than 60, he is an intermediate risk category. I had not been aware of this previously, but he has had several prior episodes of superficial thrombophlebitis which potentially could further increase his risk for thromboembolic complications. We discussed the fact that per NCCN guidelines, bone marrow aspiration/biopsy is recommended for initial evaluation, but that is mainly of prognostic significance to rule out early changes of fibrosis. As it will not change his management, I do not really feel strongly about having that done. He is on the borderline of qualifying for cytoreductive therapy with hydroxyurea. At least for now, I will limit his treatment to aspirin prophylaxis, but I will plan to monitor him closely. It is very interesting to note that his brother who also has Zirywye-Amszx-Cvjck disease, was fairly recently diagnosed with essential thrombocythemia, but with the JAK2 V617F mutation. 2. He has iron deficiency anemia. He will continue on an oral iron supplement. He is aware that with the myeloproliferative disorder, he is not eligible for further blood donation. Signed By: Art Damico M.D. <<Signature on File>>
== END 2021-04-24 08:56 | disposition home or self-care (01) ==
PROVIDERS: PCP Family Medicine; Visit Provider Internal Medicine Medical Oncology
DX: D50.9 Iron deficiency anemia, unspecified (principal); D72.829 Elevated white blood cell count, unspecified; D69.3 Immune thrombocytopenic purpura; G60.0 Hereditary motor and sensory neuropathy; J30.9 Allergic rhinitis, unspecified; N40.0 Benign prostatic hyperplasia without lower urinary tract symptoms; F41.9 Anxiety disorder, unspecified; Z79.82 Long term (current) use of aspirin; Z79.899 Other long term (current) drug therapy
CPT/HCPCS: 99214

== ENCOUNTER 2021-07-01 14:31 | Oncology outpatient (recurring) (ONCR) | payer BC, SELFPAY ==
[2021-07-01 15:05] LABS: Basophils % 0.1 %; Eosinophils # 0.2 10^3/uL (0.0-0.8); Eosinophils % 1.8 %; Hematocrit 44.6 % (42.0-52.0); Hemoglobin 14.1 g/dL (11.7-16.6); Lymphocytes # 1.3 10^3/uL (0.8-4.8); Lymphocytes % 15.1 %; Mean Corpuscular HGB Conc 31.6 g/dL (30.0-36.0); Mean Corpuscular Hemoglobin 27.4 pg (28.0-34.0); Mean Corpuscular Volume 86.6 fl (80-94); Mean Platelet Volume 11.5 fL (7.4-10.4); Monocytes # 0.6 10^3/uL (0.2-0.9); Monocytes % 6.5 %; Neutrophils # 6.66 10^3/uL (1.8-7.7); Nucleated Red Blood Cells % 0 %; Platelet Count 778 10^3/cmm (130-400); Red Blood Count 5.15 10^6/uL (4.1-5.3); Red Cell Distribution Width 17.9 % (12.1-15.1); White Blood Count 8.8 10^3/uL (4.0-10.0)
[2021-07-01 15:31] LABS: Ferritin 33 ng/mL (30-400); Iron 66 ug/dL (59-158); Percent Saturation 20.8 % (20-50); Total Iron Binding Capacity 316 mcg/dl; Unsaturated Iron Binding 250 ug/dL (112-347)
== END 2021-07-15 23:59 | disposition home or self-care (01) ==
PROVIDERS: PCP Family Medicine; Visit Provider Internal Medicine Medical Oncology
DX: D47.3 Essential (hemorrhagic) thrombocythemia (principal); D50.9 Iron deficiency anemia, unspecified; Z79.82 Long term (current) use of aspirin
CPT/HCPCS: 82728; 83540; 83550; 85025

== ENCOUNTER → 2021-11-26 08:04 | Outpatient (BNVA) | payer BC, SELFPAY | PROVIDERS: PCP Family Medicine; Visit Provider Family Medicine | DX: D47.3 Essential (hemorrhagic) thrombocythemia (principal); R53.83 Other fatigue; D50.8 Other iron deficiency anemias; I10 Essential (primary) hypertension | CPT/HCPCS: 80053; 80061; 83036 ==

== ENCOUNTER 2022-01-05 14:33 | Oncology outpatient (recurring) (ONCR) | payer BC, SELFPAY ==
[2022-01-05 14:50] LABS: Basophils % 0.3 %; Eosinophils # 0.2 10^3/uL (0.0-0.8); Eosinophils % 1.7 %; Hematocrit 43.9 % (42.0-52.0); Hemoglobin 14.6 g/dL (11.7-16.6); Lymphocytes # 1.5 10^3/uL (0.8-4.8); Lymphocytes % 15.9 %; Mean Corpuscular HGB Conc 33.3 g/dL (30.0-36.0); Mean Corpuscular Hemoglobin 30.5 pg (28.0-34.0); Mean Corpuscular Volume 91.6 fl (80-94); Mean Platelet Volume 11.1 fL (7.4-10.4); Monocytes # 0.6 10^3/uL (0.2-0.9); Monocytes % 6.8 %; Neutrophils # 6.93 10^3/uL (1.8-7.7); Nucleated Red Blood Cells % 0 %; Platelet Count 705 10^3/cmm (130-400); Red Blood Count 4.79 10^6/uL (4.1-5.3); Red Cell Distribution Width 13.4 % (12.1-15.1); White Blood Count 9.3 10^3/uL (4.0-10.0)
[2022-01-05 15:08] LABS: Alanine Aminotransferase 27 U/L (0-41); Alkaline Phosphatase 102 U/L (40-130); Aspartate Amino Transferase 26 U/L (0-40); Blood Urea Nitrogen 19 mg/dL (8-23); Calcium 9.1 mg/dL (8.5-10.5); Carbon Dioxide 24 mmol/L (22-29); Chloride 106 mmol/L (98-107); Ferritin 54 ng/mL (30-400); Globulin 3.1 g/dL (1.3-4.6); Glomerular Filtration Rate 113.5 mL/min (90-130); Glucose 119 mg/dL (65-115); Iron 110 ug/dL (59-158); Lactate Dehydrogenase 297 U/L (135-225); Osmolality Calculated 295 mOsm/kg (285-295); Sodium 141 mmol/L (136-145); Total Bilirubin 0.4 mg/dL (0.15-1.2); Total Iron Binding Capacity 297 mcg/dl; Total Protein 7.1 g/dL (6.6-8.7); Unsaturated Iron Binding 187 ug/dL (112-347)
== END 2022-01-14 23:59 | disposition home or self-care (01) ==
PROVIDERS: PCP Family Medicine; Visit Provider Internal Medicine Medical Oncology
DX: D47.3 Essential (hemorrhagic) thrombocythemia (principal); D50.9 Iron deficiency anemia, unspecified; Z79.82 Long term (current) use of aspirin; Z79.01 Long term (current) use of anticoagulants; Z79.899 Other long term (current) drug therapy
CPT/HCPCS: 36415; 80053; 82728; 83540; 83550; 83615; 85025

== ENCOUNTER 2022-01-15 06:24 | Day surgery (SDC) | payer BC, SELFPAY ==
[2022-01-14 10:41] VITALS: BMI 26.4
[2022-01-15] VITALS (9 sets, daily range): BP systolic 107–165; BP diastolic 67–97; PULSE 67–86; RESP 14–18; TEMP 36.2–36.9; O2SAT 95–98
[2022-01-15] MEDS: sodium chloride 0.9% 1,000 ML 30 ML IV (07:08)
--- NOTE | 2022-01-15 07:49 | W.PM.OPSUD ---
Surgery/Procedure H&P Update DATE OF PROCEDURE: January 15, 2022 DATE H&P PERFORMED: 01/05/22 PREOP DIAGNOSIS: Right inguinal hernia PLANNED PROCEDURE: Operation Date: 01/15/22 08:00 Proposed Procedures p lap right inguinal hernia repair with mesh [id number] K40.90(Right) - Fritz Lechuga DO
--- NOTE | 2022-01-15 08:02 | ANES.PREANE2 ---
Pre-Anesthetic Assessment Height/Weight: Height 1.85 m Weight 90.718 kg Temp Pulse Resp BP Pulse Ox O2 Del Method 97.7 F 67 18 165/97 97 01/15/22 06:44 01/15/22 06:44 01/15/22 06:44 01/15/22 06:44 01/15/22 06:44 01/15/22 06:44 Preop Diagnosis: Right inguinal hernia Operation Date: 01/15/22 08:00 Proposed Procedures p lap right inguinal hernia repair with mesh [id number] K40.90(Right) - Fritz Lechuga DO Familial anesthetic complications: none Was Beta Varinder taken within 24 hours: N/A Was Clonidine taken within 24 hours: N/A Last intake: Intake Last Liquid Date 01/14/22 Last Liquid Time 18:00 Last Solid Date 01/14/22 Last Solid Time 18:00 Social No alcohol and No tobacco Exam alert and oriented x 3 Airway Submandibular: within normal limits Cervical ROM: within normal limits Mallampati: Class I Dentition: full History/ROS No significant history except as noted Pulmonary None reported CV/HEM None reported None reported Hepatic None reported GI None reported Metabolic None reported Musc/skel None reported Neuropsych essential thrombocyopenia Anesthetic Plan ASA status: 2 Anesthesia: Anesthesia Evaluation and General Risk of > 500 ml blood loss (7ml/kg in children): No Medications/Allergies Home Medications Medication Instructions Recorded Confirmed Last Taken Type aspirin 81 mg tablet,delayed 81 mg PO DAILY 08/24/19 01/15/22 01/14/22 History release loratadine 10 mg tablet (Claritin) 10 mg PO DAILY 08/24/19 01/15/22 01/14/22 History multivitamin 1 cap PO DAILY 08/24/19 01/15/22 01/14/22 History fluticasone propionate 50 1 spray intranasal DAILY 06/04/20 01/15/22 01/14/22 History mcg/actuation nasal spray,suspension (Flonase Allergy Relief) tamsulosin 0.4 mg capsule (Flomax) 0.4 mg PO DAILY 02/18/21 01/15/22 01/14/22 History ibuprofen 200 mg tablet 200 mg PO Q6H PRN Pain 02/25/21 01/15/22 02/19/21 History alprazolam 0.25 mg tablet (Xanax) 0.25 mg PO BID PRN Anxiety 01/05/22 01/15/22 Unknown History gabapentin 300 mg capsule 300 mg PO DAILY PRN Pain (Scale 01/05/22 01/15/22 Unknown History Score 4-6) Allergies Allergy/AdvReac Type Severity Reaction Status Date / Time Penicillins Allergy ALGY-Anaphy Verified 01/14/22 10:37 laxis Current Medications Generic Name Dose Route Start Last Admin Trade Name Freq PRN Reason Stop Dose Admin Sodium Chloride 1,000 mls @ 30 mls/hr 01/15/22 06:45 01/15/22 07:08 Sodium Chloride 0.9% IV 01/16/22 06:44 30 mls/hr .Q24H SERGO Administration PFSH Anesthesia Medical History Benign prostatic hyperplasia Charcot Eugenia Tooth muscular atrophy Degenerative arthritis Essential (hemorrhagic) thrombocythemia Other iron deficiency anemias Surgical History History of arthroscopic knee surgery (2018) History of colonoscopy 2019 History of foot surgery (01/06/19) right fifth metatarsal head resection History of inguinal hernia repair (02/26/21) left History of shoulder surgery (03/01/15) left rotator cuff repair with biceps tendon repair History of tonsillectomy 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 Status post surgical removal of malignant neoplasm of skin x 2 Family History Father Lung disease Other CAD (coronary artery disease) Denies family history of Diabetes Clotting disorder Dementia Hyperlipidemia Psychiatric illness Chronic kidney disease (CKD) Suicide Anesthesia complication Bleeding disorder Cancer Hypertension Stroke Social History Smoking and tobacco status: never smoked Alcohol intake: current Alcohol intake frequency: 0-2 Drinks per Day History of recent travel: Yes ([facility]) Data Anesthesia Cardiac Studies: No Data to Display
[2022-01-15] MEDS: vancomycin 1,000 MG in sodium chloride 0.9% 250 ML 250 MG IV (08:04)
--- NOTE | 2022-01-15 09:19 | PM.OP ---
Operative Report Date of procedure: January 15, 2022 Pre-op diagnosis: Preop Diagnosis Right inguinal hernia Post-op diagnosis: other (Pantaloon right inguinal hernia) Procedure done: Laparoscopic repair of right inguinal hernia with mesh Implants: Large right 3D max Bard mesh Specimens removed/disposition: None Surgeon: Dr. Fritz Lechuga DO Anesthesia: General Estimated blood loss (mL): 10 Complications: None apparent Brief History: This is a very pleasant 66-year-old gentleman who presented to my office with a right inguinal hernia. He previously had a laparoscopic repair of a left inguinal hernia with mesh earlier this year. Laparoscopic repair of right inguinal hernia with mesh was indicated. The risks and benefits were explained and documented. Procedure: Patient was wheeled into the operative room and placed on the OR table in a supine position. Abdomen was inspected prepped and draped in usual sterile fashion. Time-out was performed and all present were in agreement. A 15 blade scalpel was used to make 1.2 centimeter incision infraumbilically. Entry was somewhat difficult given the previous transverse incision in the same area for left inguinal hernia repair. Combination of sharp and blunt dissection was performed down to the anterior rectus sheath which was opened sharply. The dissecting balloon was then inserted into the space of Retzius and blown up. We put the camera into the port and identified that we were in the correct space. I then placed 2 5 millimeter trocars suprapubically in the midline. There was some bleeding from the left inferior epigastric artery which was controlled with clipping. I then used endokitners to bluntly dissect in the space of Retzius out laterally. A pantaloon right inguinal hernia was identified on the right. Blunt dissection was performed to dissect down the hernia sac until the vas deferens dove medially. A large right inguinal mesh was then placed into the space of Retzius. The mesh was unrolled and tacked once medially at the pubic bone. The mesh laid out nicely over the spermatic cord. Photos were taken of the mesh laid out and the hernia sac laid underneath the mesh. I watched the hernia sac remained in place as insufflation was removed. Incisions were closed with 4 O Vicryl in a subcuticular interrupted fashion. Skin glue was applied. Patient tolerated the procedure well.
[2022-01-15] MEDS: oxyCODONE-APAP 5-325 mg Tablet 1 TAB PO (10:15)
--- NOTE | 2022-01-15 15:54 | ANE.PACU2 ---
Inpatient post-anesthesia follow up: Airway intact: Yes Vital signs: Temperature 98.5 F Pulse Rate 73 Respiratory Rate 18 Blood Pressure 124/91 Pulse Oximetry 96 Oxygen Delivery Me thod Room Air Oxygen Flow Rate 6 Fraction of Inspir ed Oxygen Hydration adequate: Yes Nausea and vomiting: No Pain level: 1 Mental status: Baseline
== END 2022-01-15 10:39 | disposition home or self-care (01) ==
PROVIDERS: PCP Family Medicine; Visit Provider Surgery
PROC: (CPT 49650; principal; 2022-01-15 07:50)
DX: K40.90 Unilateral inguinal hernia, without obstruction or gangrene, not specified as recurrent (principal); Z79.82 Long term (current) use of aspirin
CPT/HCPCS: 49650; 51702; C1781; J1100; J1885; J2704; J2710; J3010; J3370; J3490; J7030; J7050

== ENCOUNTER 2022-06-25 15:07 | Outpatient (CLI) | payer BC, SELFPAY | END 2022-06-25 15:08 | disposition home or self-care (01) | LOC: SPT 15:08 | PROVIDERS: PCP Family Medicine; Visit Provider Podiatrist Foot & Ankle Surgery | DX: Z46.89 Encounter for fitting and adjustment of other specified devices (principal); M20.40 Other hammer toe(s) (acquired), unspecified foot; M21.371 Foot drop, right foot; G60.0 Hereditary motor and sensory neuropathy | CPT/HCPCS: 97760; L3030 ==

== ENCOUNTER 2022-06-25 15:56 | Oncology outpatient (recurring) (ONCR) | payer BC, SELFPAY ==
[2022-06-25 16:48] LABS: Basophils % 0.3 %; Eosinophils # 0.2 10^3/uL (0.0-0.8); Eosinophils % 2.1 %; Lymphocytes # 1.6 10^3/uL (0.8-4.8); Lymphocytes % 18.4 %; Mean Corpuscular HGB Conc 32.6 g/dL (30.0-36.0); Mean Corpuscular Hemoglobin 29.6 pg (28.0-34.0); Mean Corpuscular Volume 90.9 fl (80-94); Mean Platelet Volume 11.4 fL (7.4-10.4); Monocytes # 0.7 10^3/uL (0.2-0.9); Monocytes % 7.6 %; Neutrophils # 6.21 10^3/uL (1.8-7.7); Neutrophils % 71.3 %; Nucleated Red Blood Cells % 0 %; Platelet Count 668 10^3/cmm (130-400); Red Blood Count 4.73 10^6/uL (4.1-5.3); Red Cell Distribution Width 13.7 % (12.1-15.1); White Blood Count 8.7 10^3/uL (4.0-10.0)
[2022-06-25 17:16] LABS: Alanine Aminotransferase 22 U/L (0-41); Albumin Level 4.1 g/dL (3.5-5.2); Alkaline Phosphatase 93 U/L (40-130); Anion Gap 14.7 (5-19); Aspartate Amino Transferase 20 U/L (0-40); Blood Urea Nitrogen 16 mg/dL (8-23); Calcium 8.8 mg/dL (8.5-10.5); Carbon Dioxide 25 mmol/L (22-29); Chloride 103 mmol/L (98-107); Globulin 2.7 g/dL (1.3-4.6); Glucose 94 mg/dL (65-115); Lactate Dehydrogenase 275 U/L (135-225); Osmolality Calculated 289 mOsm/kg (285-295); Potassium 3.7 mmol/L (3.5-5.1); Sodium 139 mmol/L (136-145); Total Bilirubin 0.3 mg/dL (0.15-1.2); Total Protein 6.8 g/dL (6.6-8.7)
== END 2022-07-15 23:59 | disposition home or self-care (01) ==
PROVIDERS: PCP Family Medicine; Visit Provider Internal Medicine Medical Oncology
DX: D75.839 Thrombocytosis, unspecified
CPT/HCPCS: 36415; 80053; 83615; 85025

== ENCOUNTER → 2022-10-27 09:33 | Outpatient (BNVA) | payer BC, SELFPAY | PROVIDERS: PCP Family Medicine; Visit Provider Family Medicine | DX: M65.30 Trigger finger, unspecified finger (principal); D47.3 Essential (hemorrhagic) thrombocythemia; R03.0 Elevated blood-pressure reading, without diagnosis of hypertension | CPT/HCPCS: 80053; 80061; 83036; 85025 ==

== ENCOUNTER → 2022-12-01 10:01 | Outpatient (BNVA) | payer BC, SELFPAY | PROVIDERS: PCP Family Medicine; Referring Provider Family Medicine; Visit Provider Student in an Organized Health Care Education/Training Program | DX: M65.331 Trigger finger, right middle finger | CPT/HCPCS: 73120 ==

== ENCOUNTER 2022-12-29 11:30 | Oncology outpatient (recurring) (ONCR) | payer BC, SELFPAY ==
[2022-12-29 11:39] VITALS: BP 153/91; PULSE 65; RESP 16; TEMP 36.8; O2SAT 95
[2022-12-29 11:57] LABS: Basophils % 0.1 %; Eosinophils # 0.1 10^3/uL (0.0-0.8); Eosinophils % 1.8 %; Lymphocytes # 1.4 10^3/uL (0.8-4.8); Lymphocytes % 17.9 %; Mean Corpuscular Hemoglobin 30.3 pg (27-33); Mean Corpuscular Volume 91.9 fl (82-101); Mean Platelet Volume 11.4 fL (7.4-10.4); Monocytes # 0.6 10^3/uL (0.2-0.9); Monocytes % 7.9 %; Neutrophils # 5.67 10^3/uL (1.8-7.7); Neutrophils % 71.9 %; Nucleated Red Blood Cells % 0 %; Platelet Count 700 10^3/cmm (157-399); Red Blood Count 4.68 10^6/uL (3.85-5.65); Red Cell Distribution Width 13.6 % (12.1-15.1); White Blood Count 7.88 10^3/uL (3.29-11.43)
[2022-12-29 12:54] LABS: Alanine Aminotransferase 24 U/L (0-41); Albumin Level 4.1 g/dL (3.5-5.2); Alkaline Phosphatase 88 U/L (40-130); Anion Gap 14.4 (5-19); Aspartate Amino Transferase 24 U/L (0-40); Blood Urea Nitrogen 16 mg/dL (8-23); Calcium 9.1 mg/dL (8.5-10.5); Carbon Dioxide 24 mmol/L (22-29); Chloride 108 mmol/L (98-107); Globulin 2.6 g/dL (1.3-4.6); Glomerular Filtration Rate 113.2 mL/min (90-130); Glucose 97 mg/dL (65-115); Lactate Dehydrogenase 300 U/L (135-225); Osmolality Calculated 295 mOsm/kg (285-295); Potassium 4.4 mmol/L (3.5-5.1); Sodium 142 mmol/L (136-145); Total Bilirubin 0.5 mg/dL (0.15-1.2); Total Protein 6.7 g/dL (6.6-8.7)
[2022-12-29 13:16] LABS: Slide Review Slide Review Perform
== END 2023-01-14 23:59 | disposition home or self-care (01) ==
PROVIDERS: PCP Family Medicine; Visit Provider Internal Medicine Medical Oncology
DX: D47.3 Essential (hemorrhagic) thrombocythemia (principal); D50.9 Iron deficiency anemia, unspecified; Z79.82 Long term (current) use of aspirin; Z79.01 Long term (current) use of anticoagulants; Z79.899 Other long term (current) drug therapy
CPT/HCPCS: 36415; 80053; 83615; 85025

== ENCOUNTER 2023-01-13 08:09 | Day surgery (SDC) | payer BC, SELFPAY ==
[2023-01-13] VITALS (8 sets, daily range): BP systolic 111–147; BP diastolic 65–96; PULSE 57–74; RESP 12–18; TEMP 36.9–37.1; O2SAT 93–96; BMI 26.4
--- NOTE | 2023-01-13 09:01 | ANES.PREANE2 ---
Pre-Anesthetic Assessment Height/Weight: Height 1.85 m Weight 90.718 kg Temp Pulse Resp BP Pulse Ox O2 Del Method 98.7 F 70 18 147/84 96 Room Air 01/13/23 08:51 01/13/23 08:51 01/13/23 08:51 01/13/23 08:51 01/13/23 08:51 01/13/23 08:51 Operation Date: 01/13/23 09:50 Proposed Procedures p Trigger Finger Release: right middle finger trigger release(Right) - Ryan Metcalfe, DO Familial anesthetic complications: none Was Beta Varinder taken within 24 hours: N/A Was Clonidine taken within 24 hours: N/A Last intake: Intake Last Liquid Date 01/12/23 Last Liquid Time 20:00 Last Solid Date 01/12/23 Last Solid Time 20:00 Social Alcohol (couple of beers a day) and No tobacco Exam alert, oriented x 3, clear to auscultation bilaterally and regular rate & rhythm Airway Mallampati: Class I Dentition: full CV/HEM essential thrombocytopenia Neuropsych Charcot eugenia tooth Anesthetic Plan ASA status: 3 Anesthesia: MAC Risk of > 500 ml blood loss (7ml/kg in children): No Medications/Allergies Home Medications Medication Instructions Recorded Confirmed Last Taken Type aspirin 81 mg tablet,delayed 81 mg PO DAILY 08/24/19 01/13/23 01/05/23 History release multivitamin 1 cap PO DAILY 08/24/19 01/13/23 01/12/23 History fluticasone propionate 50 1 spray intranasal DAILY 06/04/20 01/13/23 01/12/23 History mcg/actuation nasal spray,suspension (Flonase Allergy Relief) ibuprofen 200 mg tablet 200 mg PO Q6H PRN Pain 02/25/21 01/13/23 01/11/23 History gabapentin 300 mg capsule 300 mg PO DAILY PRN Pain (Scale 01/05/22 01/13/23 Unknown History Score 4-6) Accommodative Orthotics #1 ea 05/18/22 12/29/22 Unknown Rx alprazolam 0.25 mg tablet (Xanax) 0.25 mg PO BID PRN Anxiety #60 tabs 05/28/22 01/13/23 Unknown Rx fexofenadine 60 mg tablet (Zuleyma 60 mg PO DAILY 06/25/22 01/13/23 01/12/23 History Allergy) azelastine 137 mcg (0.1 %) nasal 1 spray intranasal DAILY 10/27/22 01/13/23 01/12/23 History spray aerosol tamsulosin 0.4 mg capsule 0.4 mg PO BEDTIME 01/12/23 01/13/23 01/12/23 History ondansetron 4 mg disintegrating 4 mg PO Q8H PRN nausea and 01/13/23 Unknown Rx tablet vomiting 3 days #9 tabs tramadol 50 mg tablet 50 mg PO Q6H PRN pain #20 tabs 01/13/23 Unknown Rx Allergies Allergy/AdvReac Type Severity Reaction Status Date / Time Penicillins Allergy ALGY-Anaphy Verified 01/13/23 08:31 laxis PFSH Anesthesia Medical History Benign prostatic hyperplasia Charcot Eugenia Tooth muscular atrophy Degenerative arthritis Essential (hemorrhagic) thrombocythemia Other iron deficiency anemias Surgical History History of arthroscopic knee surgery (2018) History of colonoscopy 2019 History of foot surgery (01/06/19) right fifth metatarsal head resection History of inguinal hernia repair (02/26/21) left History of shoulder surgery (03/01/15) left rotator cuff repair with biceps tendon repair History of tonsillectomy 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
[2023-01-13] MEDS: sodium chloride 0.9% 1,000 ML 30 ML IV (09:02)
[2023-01-13] MEDS: ketorolac 30 mg/mL INJ IVP (09:03)
[2023-01-13] MEDS: acetaminophen 1,000 MG/100 ML PIGGYBACK 400 MG IV (09:04)
[2023-01-13] MEDS: scopolamine 1.5 Patch 1 PATCH TRANSDERMA (09:06)
[2023-01-13] MEDS: vancomycin 1,500 MG/300 ML PIGGYBACK 200 MG IV (09:13)
--- NOTE | 2023-01-13 11:01 | W.PM.OPSFHP ---
Same Day Surgery H&P Indication for Procedure/HPI DATE OF PROCEDURE: January 13, 2023 CHIEF COMPLAINT/INDICATIONFOR SURGICAL PROCEDURE: Right middle finger trigger PREOP DIAGNOSIS: Right middle finger trigger PLANNED PROCEDURE: Operation Date: 01/13/23 09:50 Proposed Procedures p Trigger Finger Release: right middle finger trigger release(Right) - Ryan Jacob DO Medications/Allergies* Home Medications Medication Instructions Recorded Confirmed Type aspirin 81 mg tablet,delayed 81 mg PO DAILY 08/24/19 01/13/23 History release multivitamin 1 cap PO DAILY 08/24/19 01/13/23 History fluticasone propionate 50 1 spray intranasal DAILY 06/04/20 01/13/23 History mcg/actuation nasal spray,suspension (Flonase Allergy Relief) ibuprofen 200 mg tablet 200 mg PO Q6H PRN Pain 02/25/21 01/13/23 History gabapentin 300 mg capsule 300 mg PO DAILY PRN Pain (Scale 01/05/22 01/13/23 History Score 4-6) fexofenadine 60 mg tablet (Zuleyma 60 mg PO DAILY 06/25/22 01/13/23 History Allergy) azelastine 137 mcg (0.1 %) nasal 1 spray intranasal DAILY 10/27/22 01/13/23 History spray aerosol tamsulosin 0.4 mg capsule 0.4 mg PO BEDTIME 01/12/23 01/13/23 History Allergies/Adverse Reactions Allergy/AdvReac Type Severity Reaction Status Date / Time Penicillins Allergy ALGY-Anaphy Verified 01/13/23 08:31 laxis Current Medications: Generic Name Dose Route Start Last Admin Trade Name Freq PRN Reason Stop Dose Admin Sodium Chloride 1,000 mls @ 30 mls/hr 01/13/23 08:15 01/13/23 09:02 Sodium Chloride 0.9% IV 01/14/23 08:14 30 mls/hr .Q24H SERGO Administration Pertinent History/Comorbid Conditions* Medical History (Updated 12/14/22 @ 18:28 by Ryan Jacob DO) Degenerative arthritis Benign prostatic hyperplasia Other iron deficiency anemias Essential (hemorrhagic) thrombocythemia Charcot Eugenia Tooth muscular atrophy Surgical History (Updated 01/27/22 @ 08:28 by Fritz Lechuga DO) Hx of right inguinal hernia repair History of tonsillectomy History of inguinal hernia repair (02/26/21) left Status post surgical removal of malignant neoplasm of skin x 2 History of arthroscopic knee surgery (2018) History of foot surgery (01/06/19) right fifth metatarsal head resection 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 History of shoulder surgery (03/01/15) left rotator cuff repair with biceps tendon repair History of colonoscopy 2019 Family History (Updated 07/01/21 @ 16:04 by Sophie Molnia LPN) CAD (coronary artery disease) Lung disease Father Denies family history of Diabetes Clotting disorder Dementia Hyperlipidemia Psychiatric illness Chronic kidney disease (CKD) Suicide Anesthesia complication Bleeding disorder Cancer Hypertension Stroke Social History Smoking and tobacco/nicotine status: never used tobacco/nicotine Alcohol intake: current Alcohol intake frequency: 0-2 Drinks per Day Substance/Drug Use: never Pertinent Exam Findings alert, oriented x 3, operative site marked and procedure specific exam findings Right hand Decreased range of motion right middle finger secondary to pain and triggering and swelling. The flexor digitorum profundus and sublimis are intact to each digit.There is tenderness directly over the A1 juan manuel of the right middle finger. There is palpable swelling noted with flexion and extension of the digit over the A1 juan manuel. Mechanical triggering and locking noted patient has to straighten finger. Recommendations Surgery/Procedure today Other Plans: Plan to proceed with right middle finger trigger release today. Coding Level of Care Code Acute Code for Madeline Garduno
[2023-01-13] MEDS: BUPivacaine 0.5% INJ 10 mL 5 ML INJECTION (11:36)
[2023-01-13] MEDS: ROPivacaine 0.5% SDV 30 mL 25 MG INJECTION (11:36)
--- NOTE | 2023-01-13 11:50 | PM.OP ---
Operative Report Date of procedure: January 13, 2023 Surgeon: Ryan Jacob DO [place] Worker: Pk Jacob PA-C: PA necessary for assistance in this case with retraction and protection of neurovascular structures, assistance and wound closure as well as dressing application. Procedure: Preoperative diagnosis: Right middle finger trigger Post-op diagnosis: Same Procedure done: Right middle finger?trigger?release Surgeon: Ryan Jacob DO Estimated blood loss: 5cc Tourniquet time 6mins Complications: None Condition: stable Disposition: same day Brief History: Patient's been seen and worked up in the outpatient setting and findings consistent with preoperative diagnosis of right middle finger?trigger.? He is failed conservative treatment.? Continues to have mechanical locking and catching.? Severe pain as well.? We talked about treatment options nonoperative versus operative intervention.? ?Patient understands the risk benefits complication alternatives of surgical nonsurgical treatment options.? Understanding his risks with surgery he elects proceed with surgical intervention.? Consent obtained in the office.? Here today to proceed with surgical intervention.? All questions answered. Procedure: Patient was seen and evaluated in the preoperative holding area.? Consent was reviewed and signed with patient.? Seen evaluated by Anesthesia Department.? Once cleared for surgery was brought back to the operative suite.? Placed in supine position on the OR table all bony prominences well-padded patient properly secured to the bed.? Patient's right arm was then placed to the armboard.? A nonsterile tourniquet applied to the right upper arm.? Patient's right upper extremity was then prepped and draped in standard orthopedic fashion.? Final timeout performed.? Patient received appropriate preoperative antibiotics. Esmarch tourniquet was used exsanguinate the right upper extremity tourniquet insufflated to 250 mmHg. Under sterile aseptic technique local digital block was performed to the right middle finger.? Once appropriately anesthetized a standard oblique incision was made centering over the A1 juan manuel following patient's flexor crease.? Sharp scalpel incision was made only through skin and then switched to Littler dissection scissors and spread longitudinally directly over the flexor tendon sheath.? I then mobilized both radially and ulnarly and Kasdan retractors were used and placed by my purchasing administrative assistant to protect neurovascular bundle.? Next I visualized the A1 juan manuel and this was incised with a scalpel.? I then switched to dissection scissors and released the A1 juan manuel both proximally as well as distally to its entirety.? Significant tendon sheath fluid was noted consistent with inflammation.? Mild fraying of the flexor tendons noted but no tear.? At this point I utilized a rag nail and pulled the tendons FDS and FDP out of the incision and no?triggering was noted.? I then had anesthesia wake up the patient and patient was able to actively flex and extend with no?triggering.? This point thorough irrigation was performed.? Tourniquet deflated hemostasis satisfactory with bipolar.? I then subsequently closed the incision with interrupted nylon suture.? Xeroform 4 x 4's, Kerlix and an Tadeo wrap was applied for a bulky soft dressing.? Patient was then subsequently awakened from anesthesia and taken to PACU in stable condition tolerated procedure without issues. Disposition: Patient taken back in stable condition recovering well.? Patient will receive appropriate discharge instruction as well as pain medication postoperatively.? Patient to follow-up with me in the office in 2 weeks for repeat evaluation and incision check.? Patient understands that any questions or concerns and contact the office.? All questions answered. ?
--- NOTE | 2023-01-13 11:51 | W.PM.BPON ---
Date of Procedure: [January 13, 2023] Surgeon: [Dr. Nidia CATES] [employer] Worker(s): [Pk Jacob physician associate] Procedure(s) performed: [Right middle finger trigger release] Findings of the procedure(s): [Right middle finger trigger] Estimated blood loss: [1 ml] Specimen(s) removed: [n/a] Post-operative diagnosis: [Right middle finger trigger]
--- NOTE | 2023-01-13 11:52 | PM.PACU ---
PACU note Narrative: Patient is a 67-year-old male that just underwent a right middle finger trigger release. Patient transferred to PACU in stable condition. Pain is well controlled. Dressing on hand is dry and in place. Patient's fingers are warm and well-perfused. Patient can wiggle fingers. normal cap refill under 2 seconds. Patient has normal elbow range of motion. Unable to assess sensation due to residual localized anesthetic. Exam: awake Disposition: discharged
--- NOTE | 2023-01-13 14:13 | ANE.PACU2 ---
Inpatient post-anesthesia follow up: Airway intact: Yes Vital signs: Temperature 98.4 F Pulse Rate 60 Respiratory Rate 16 Blood Pressure 139/96 Pulse Oximetry 94 Oxygen Delivery Me thod Room Air Oxygen Flow Rate Fraction of Inspir ed Oxygen Hydration adequate: Yes Nausea and vomiting: No Pain level: 1 Mental status: Baseline
== END 2023-01-13 12:45 | disposition home or self-care (01) ==
PROVIDERS: PCP Family Medicine; Visit Provider Student in an Organized Health Care Education/Training Program
PROC: (CPT 26055; principal; 2023-01-13 09:40)
DX: M65.331 Trigger finger, right middle finger (principal); Z79.82 Long term (current) use of aspirin
CPT/HCPCS: 26055; J0131; J1885; J2704; J2795; J3010; J3370; J3490; J7030

== ENCOUNTER 2023-03-29 12:58 | Oncology outpatient (recurring) (ONCR) | payer BC, SELFPAY ==
[2023-03-29 13:17] LABS: Basophils % 0.3 %; Eosinophils # 0.1 10^3/uL (0.0-0.8); Eosinophils % 1.9 %; Lymphocytes # 1.3 10^3/uL (0.8-4.8); Lymphocytes % 16.8 %; Mean Corpuscular HGB Conc 33.3 g/dL (30-55); Mean Corpuscular Hemoglobin 30.2 pg (27-33); Mean Corpuscular Volume 90.7 fl (82-101); Mean Platelet Volume 11.2 fL (7.4-10.4); Monocytes # 0.4 10^3/uL (0.2-0.9); Monocytes % 5.5 %; Neutrophils # 5.67 10^3/uL (1.8-7.7); Neutrophils % 75.2 %; Nucleated Red Blood Cells % 0 %; Platelet Count 631 10^3/cmm (157-399); Red Blood Count 4.74 10^6/uL (3.85-5.65); Red Cell Distribution Width 13.6 % (12.1-15.1); White Blood Count 7.52 10^3/uL (3.29-11.43)
[2023-03-29 13:44] LABS: Alanine Aminotransferase 19 U/L (0-41); Alkaline Phosphatase 92 U/L (40-130); Anion Gap 14.4 (5-19); Aspartate Amino Transferase 22 U/L (0-40); Blood Urea Nitrogen 19 mg/dL (8-23); Calcium 8.3 mg/dL (8.5-10.5); Carbon Dioxide 25 mmol/L (22-29); Chloride 106 mmol/L (98-107); Glucose 133 mg/dL (65-115); Lactate Dehydrogenase 366 U/L (135-225); Osmolality Calculated 296 mOsm/kg (285-295); Potassium 4.4 mmol/L (3.5-5.1); Prostate Specific Antigen Scr 1.87 ng/mL (0-4); Sodium 141 mmol/L (136-145); Total Bilirubin 0.4 mg/dL (0.15-1.2)
== END 2023-04-15 23:59 | disposition home or self-care (01) ==
LOC: ONCMED 12:58
PROVIDERS: Nurse Practitioner Family; PCP Family Medicine; Visit Provider Internal Medicine Medical Oncology
DX: D47.3 Essential (hemorrhagic) thrombocythemia (principal); Z12.5 Encounter for screening for malignant neoplasm of prostate
CPT/HCPCS: 36415; 80053; 83615; 85025; G0103

== ENCOUNTER 2023-11-18 11:30 | Oncology outpatient (recurring) (ONCR) | payer BC, SELFPAY ==
[2023-11-18 12:10] LABS: Basophils % 0.2 %; Eosinophils # 0.1 10^3/uL (0.0-0.8); Eosinophils % 1.6 %; Hematocrit 42.1 % (37-53); Lymphocytes # 1.6 10^3/uL (0.8-4.8); Lymphocytes % 19.6 %; Mean Corpuscular HGB Conc 32.5 g/dL (30-55); Mean Corpuscular Hemoglobin 29.5 pg (27-33); Mean Corpuscular Volume 90.7 fl (82-101); Mean Platelet Volume 11.6 fL (7.4-10.4); Monocytes # 0.5 10^3/uL (0.2-0.9); Neutrophils # 5.87 10^3/uL (1.8-7.7); Neutrophils % 72.1 %; Nucleated Red Blood Cells % 0 %; Platelet Count 664 10^3/cmm (157-399); Red Blood Count 4.64 10^6/uL (3.85-5.65); Red Cell Distribution Width 13.7 % (12.1-15.1); White Blood Count 8.15 10^3/uL (3.29-11.43)
[2023-11-18 12:36] LABS: Alanine Aminotransferase 26 U/L (0-41); Albumin Level 3.9 g/dL (3.5-5.2); Alkaline Phosphatase 83 U/L (40-130); Anion Gap 11.2 (5-19); Aspartate Amino Transferase 23 U/L (0-40); Blood Urea Nitrogen 15 mg/dL (8-23); Calcium 8.5 mg/dL (8.5-10.5); Carbon Dioxide 26 mmol/L (22-29); Chloride 108 mmol/L (98-107); Globulin 2.6 g/dL (1.3-4.6); Glomerular Filtration Rate 96.7 mL/min (90-130); Glucose 104 mg/dL (65-115); Lactate Dehydrogenase 285 U/L (135-225); Osmolality Calculated 293 mOsm/kg (285-295); Potassium 4.2 mmol/L (3.5-5.1); Sodium 141 mmol/L (136-145); Total Bilirubin 0.6 mg/dL (0.15-1.2); Total Protein 6.5 g/dL (6.6-8.7)
== END 2023-12-16 23:59 | disposition home or self-care (01) ==
PROVIDERS: Nurse Practitioner Family; PCP Family Medicine; Visit Provider Internal Medicine Hematology & Oncology
DX: D47.3 Essential (hemorrhagic) thrombocythemia (principal); Z85.828 Personal history of other malignant neoplasm of skin
CPT/HCPCS: 36415; 80053; 83615; 84153; 85025

== ENCOUNTER → 2024-04-17 13:02 | Outpatient (BNVA) | payer MEDICARE, OTHER, SELFPAY | PROVIDERS: PCP Family Medicine; Visit Provider Podiatrist Foot & Ankle Surgery | DX: L97.512 Non-pressure chronic ulcer of other part of right foot with fat layer exposed (principal); M21.371 Foot drop, right foot; G60.0 Hereditary motor and sensory neuropathy | CPT/HCPCS: 99213 ==

== ENCOUNTER → 2024-05-15 09:37 | Outpatient (BNVA) | payer MEDICARE, OTHER, SELFPAY | PROVIDERS: PCP Family Medicine; Visit Provider Podiatrist Foot & Ankle Surgery | DX: M21.371 Foot drop, right foot (principal); G60.0 Hereditary motor and sensory neuropathy; L97.512 Non-pressure chronic ulcer of other part of right foot with fat layer exposed | CPT/HCPCS: 99213 ==

== ENCOUNTER → 2024-06-05 15:01 | Outpatient (BNVA) | payer MEDICARE, OTHER, SELFPAY | PROVIDERS: PCP Family Medicine; Visit Provider Nurse Practitioner Family | DX: L82.1 Other seborrheic keratosis (principal); D18.01 Hemangioma of skin and subcutaneous tissue; L73.8 Other specified follicular disorders; L81.4 Other melanin hyperpigmentation; Z08 Encounter for follow-up examination after completed treatment for malignant neoplasm; Z85.828 Personal history of other malignant neoplasm of skin; L57.0 Actinic keratosis | CPT/HCPCS: 17000; 99213 ==

== ENCOUNTER → 2024-08-01 08:17 | Outpatient (BNVA) | payer MEDICARE, OTHER, SELFPAY | PROVIDERS: PCP Family Medicine; Visit Provider Family Medicine | DX: R05.9 Cough, unspecified (principal); R03.0 Elevated blood-pressure reading, without diagnosis of hypertension | CPT/HCPCS: 80048; 83880; 85025 ==

== ENCOUNTER 2024-08-31 06:20 | Oncology outpatient (recurring) (ONCR) | payer MEDICARE, OTHER, SELFPAY ==
--- NOTE | 2024-08-31 06:30 | USCV_ITS ---
Ric Alejo Age: 69 Gender: M : 1955 Exam Date: 08/31/2024 06:39 Ordering Phys: Ovi Prescott MD Technologist: DEMARIO [place] [facility] [place]: Swelling/Dyspnea BP: 152 / 72 HR: 66 Rhythm: Sinus Technical Quality: Adequate MEASUREMENTS (Male / Female) Normal Values 2D ECHO LV Diastolic Diameter PLAX 5.0 cm 4.2 - 5.9 / 3.9 - 5.3 cm IVS Diastolic Thickness 0.9 cm 0.6 - 1.0 / 0.6 - 0.9 cm IVS Systolic Thickness 1.7 cm LVPW Diastolic Thickness 1.3 cm 0.6 - 1.0 / 0.6 - 0.9 cm LVPW Systolic Thickness 1.3 cm LVOT Diameter 2.1 cm LV Ejection Fraction 2D Teich 59.0 % LV Ejection Fraction MOD 4C 59.2 % LV Ejection Fraction MOD 2C 58.5 % LV Ejection Fraction 2C AL 62.3 % LA Diameter 4.3 cm RA Systolic Volume 4C AL 24.5 ml RA Systolic Volume 4C MOD 24.3 ml LA Sys Volume AL 46.5 cm cubed LA Sys Volume Index AL 21.2 cm cubed/m squared Aorta at Sinotubular Diameter 2.5 cm M-MODE LA Ao Ratio MM 1.3 AV Cusp Separation MM 1.7 cm DOPPLER AV Peak Velocity 176.0 cm/s LVOT Peak Velocity 119.0 cm/s AV Area Cont Eq vti 2.1 cm squared AV Area Cont Eq pk 2.3 cm squared MV Peak Velocity 100.0 cm/s MV Area PHT 4.1 cm squared Mitral E to A Ratio 0.9 TR Peak Velocity 88.0 cm/s TR Peak Gradient 3.1 mmHg TV Peak E Velocity 88.0 cm/s PV Peak Velocity 107.0 cm/s FINDINGS Left Ventricle Normal left ventricular size, systolic function and wall thickness, with no regional wall motion abnormalities. Left ventricular ejection fraction is estimated at 60 %. Grade I/IV diastolic dysfunction (abnormal relaxation filling pattern), normal to mildly elevated filling pressures. Right Ventricle The right ventricle is normal in size and function. Right Atrium The right atrium is normal in size. Left Atrium The left atrium is normal in size. Mitral Valve Mildly thickened mitral valve. No mitral valve stenosis. Mild mitral valve regurgitation. Aortic Valve Structurally normal aortic valve without significant sclerosis or stenosis. There is no aortic regurgitation. Tricuspid Valve Structurally normal tricuspid valve without significant stenosis or regurgitation. Pulmonary artery systolic pressure is normal. Pulmonic Valve Structurally normal pulmonic valve without significant stenosis. There is no pulmonic regurgitation. Pericardium Normal pericardium without effusion. Aorta Normal ascending aorta dimension. IVC The inferior vena cava appears normal. CONCLUSIONS Normal left ventricular size, systolic function and wall thickness, with no regional wall motion abnormalities. Left ventricular ejection fraction is estimated at 60 %. Grade I/IV diastolic dysfunction (abnormal relaxation filling pattern), normal to mildly elevated filling pressures. Mildly thickened mitral valve. No mitral valve stenosis. Mild mitral valve regurgitation. There is no pericardial effusion. Right atrial pressure is around 5 mm of mercury. Freda Leonard MD (Electronically Signed) Final Date: 02 September 2024 20:32 S
== END 2024-09-14 23:59 | disposition home or self-care (01) ==
LOC: RAD 06:21 → ONCMED 09:04
PROVIDERS: PCP Family Medicine; Visit Provider Internal Medicine Hematology & Oncology
DX: R06.00 Dyspnea, unspecified (principal); Z13.6 Encounter for screening for cardiovascular disorders; R93.1 Abnormal findings on diagnostic imaging of heart and coronary circulation; I34.0 Nonrheumatic mitral (valve) insufficiency
CPT/HCPCS: 93306

== ENCOUNTER 2024-11-01 12:51 | Outpatient (CLI) | payer MEDICARE, OTHER, SELFPAY ==
--- NOTE | 2024-11-01 13:00 | CT_ITS ---
WS: [id number] CT chest w con* [id number] HISTORY: cough TECHNIQUE: Axial imaging performed through the thorax. Coronal and sagittal reformats are submitted. All CT scans at [facility] use at least one of these dose optimization techniques: automated exposure control; mA and/or kV adjustment per patient size (includes targeted exams where dose is matched to clinical indication); or iterative reconstruction. CONTRAST: Omnipaque 350; 100 mL IV. DLP: 478.25 mGy.cm COMPARISON: None available. Lungs and central airway: Low lung volumes due to poor inspiration. Partial atelectasis of the RIGHT middle lobe. Benign granuloma RIGHT upper lobe. No pneumonia. No endobronchial lesions. Pleura: Normal. No pleural effusion. Heart and pericardium: Mild LEFT atrial enlargement. No pericardial effusion. Mediastinum and felicia: No mediastinum or hilar adenopathy. Vessels: Normal size aortic and pulmonary artery. No coronary artery calcifications. Chest wall and lower neck: No soft tissue masses. Upper abdomen: Contracted gallbladder is probably due to nonfasting state. Slight elevation of the RIGHT diaphragm in part due to RIGHT middle lobe atelectasis. Hepatic flexure is interposed between the liver and the diaphragm, normal variant. No adrenal mass. The visualized pancreas is normal. Osseous structures: No destructive process. CT/CT chest w con* [id number] IMPRESSION: 1. Partial atelectasis RIGHT middle lobe. 2. Slight slight elevation of the RIGHT diaphragm is probably due to partial a telectasis of the RIGHT middle lobe. 3. No suspicious mass or pulmonary nodule. 4. No mediastinal or hilar adenopathy. 5. Mild LEFT atrial enlargement.
--- NOTE | 2024-11-01 13:00 | CT_ITS ---
WS: [id number] CT PARANASAL SINUSES HISTORY: cough TECHNIQUE: Contiguous 2.5 mm axial images obtained through the sinuses. Images are reconstructed in sagittal and coronal planes. All CT scans at [facility] use at least one of these dose optimization techniques: automated exposure control; mA and/or kV adjustment per patient size (includes targeted exams where dose is matched to clinical indication); or iterative reconstruction. DLP: 396.79 mGy.cm COMPARISON: None available. Frontal sinuses: Normal. Sphenoid sinus: Normal. Ethmoid sinuses: Normal. Maxillary sinus: Normal. Ostiomeatal unit: Ostiomeatal units are patent. There is slight increased amount of mucoperiosteal thickening with partial obstruction on the RIGHT. Minimal deviation of the nasal septum. Normal location of the cribriform plate. No osseous destruction. Visualized posterior fossa and pituitary gland are negative. Mild increased calcification of the distal carotid arteries. CT/CT sinus wo con* [id number] IMPRESSION: 1. No significant paranasal sinus disease. No air-fluid levels or acute sinusi tis. 2. Very minimal, partial obstruction of the RIGHT ostiomeatal unit.
[2024-11-01 13:35] LABS: Blood Urea Nitrogen 18 mg/dL (8-23)
[2024-11-01] MEDS: iohexol 350 mg/mL 500 mL Btl (per mL) IV (13:49)
== END 2024-11-01 12:52 | disposition home or self-care (01) ==
LOC: RAD 12:52
PROVIDERS: PCP Family Medicine; Visit Provider Family Medicine
DX: R49.0 Dysphonia (principal); R05.9 Cough, unspecified; R06.00 Dyspnea, unspecified
CPT/HCPCS: 70486; 71260; 82565; 84520

== ENCOUNTER 2024-11-14 10:25 | Outpatient (CLI) | payer MEDICARE, OTHER, SELFPAY ==
--- NOTE | 2024-11-14 | FL_ITS ---
FL barium swallow modifd [id number] REASON FOR EXAM: Difficulty swallowing. FLUOROSCOPY TIME: 2min [id number] # OF SPOT FILMS: None TECHNIQUE: Examination was supervised by the speech therapy department. The patient was examined in the sitting upright lateral projection. The swallowing of varying consistencies of barium was monitored fluoroscopically and video recorded. FINDINGS: Minimal/mild laryngeal vestibule penetration with thin liquids. No aspiration. No impedance to the transition of the barium tablet through the esophagus. There appear to be some degree of dysmotility in the mid thoracic esophagus which could be further evaluated with a formal esophagram as clinically warranted. IMPRESSION: Detailed report of the swallowing will be rendered by the speech therapy department. Mild laryngeal vestibule penetration with thin liquids. Some degree of esophageal dysmotility which can be further evaluated as clinically warranted. MTDD
== END 2024-11-14 10:26 | disposition home or self-care (01) ==
LOC: RAD 10:26
PROVIDERS: PCP Family Medicine; Visit Provider Family Medicine
DX: R49.0 Dysphonia (principal); J02.9 Acute pharyngitis, unspecified; K22.4 Dyskinesia of esophagus; R13.12 Dysphagia, oropharyngeal phase
CPT/HCPCS: 74230; 92611

== ENCOUNTER → 2025-01-01 09:27 | Outpatient (BNVA) | payer MEDICARE, OTHER, SELFPAY | PROVIDERS: PCP Family Medicine; Visit Provider Nurse Practitioner Family | DX: L57.8 Other skin changes due to chronic exposure to nonionizing radiation (principal); L81.4 Other melanin hyperpigmentation; L82.1 Other seborrheic keratosis; D18.01 Hemangioma of skin and subcutaneous tissue; Z08 Encounter for follow-up examination after completed treatment for malignant neoplasm; Z85.828 Personal history of other malignant neoplasm of skin; D48.5 Neoplasm of uncertain behavior of skin; L57.0 Actinic keratosis | CPT/HCPCS: 11102; 17000; 99213 ==

== ENCOUNTER → 2025-01-17 09:52 | Outpatient (BNVA) | payer MEDICARE, OTHER, SELFPAY | PROVIDERS: PCP Family Medicine; Visit Provider Dermatology | DX: L82.1 Other seborrheic keratosis (principal); Z08 Encounter for follow-up examination after completed treatment for malignant neoplasm; Z85.828 Personal history of other malignant neoplasm of skin; C44.519 Basal cell carcinoma of skin of other part of trunk | CPT/HCPCS: 17262; 99213 ==